=== PATIENT | female | born 1960 | race Two or more races ===

== ENCOUNTER 2016-06-01 04:41 | Emergency (ER) | payer MEDICAID ==
[~2016-06-01] VITALS: Ht 157.5 cm; Wt 81.6 kg
[2016-06-01 05:22] LABS: Urine Bilirubin Negative (Negative); Urine Color Yellow (Yellow); Urine Glucose Normal (Normal); Urine Ketone Negative (Negative); Urine Mucus FEW (None Seen); Urine Nitrite Negative (Negative); Urine RBC 10 /hpf (0 - 4); Urine Squamous Epithelial Cell FEW /hpf (<5); Urine Urobilinogen Normal (Negative)
[2016-06-01 05:26] LABS: Urine Blood 1+ /uL (Negative)
[2016-06-01] MEDS ORDERED: SODIUM CHLORIDE 0.9% 1,000 ML IV ONE ×2 (07:58→08:54)
[2016-06-01] MEDS ORDERED: KETOROLAC TROMETH 30 MG/ML 1ML VIAL IV ONE (09:00)
[2016-06-01] MEDS ORDERED: NITROFURANTOIN (MONO) 100 mg CAP PO ONE (09:00)
[2016-06-01 10:52] VITALS: BP 139/78
== END 2016-06-01 11:24 | disposition home or self-care (01) ==
LOC: ER 04:43
DX: N20.0 Calculus of kidney (principal); N39.0 Urinary tract infection, site not specified; Z87.442 Personal history of urinary calculi
CPT/HCPCS: 74176; 81001; 96361; 96374; 99285; J1885; J7030